=== PATIENT | female | born 1985 | race African-American/Black ===

== ENCOUNTER 2016-11-21 14:14 | Emergency (ER) | payer MEDICAID ==
[~2016-11-21] VITALS: Ht 170.2 cm; Wt 99.8 kg
[~2016-11-21 14:14] MED LIST: METRONIDAZOLE500 MG ORAL; SYNTHROID88 MCG ORAL; ZOFRAN4 MG ORAL
[2016-11-21 14:27] VITALS: BP 124/80
[2016-11-21 16:57] VITALS: BP 118/72
[2016-11-21] MEDS ORDERED: CLINDAMYCIN HC300 MG ORAL (17:01)
[2016-11-21] MEDS ORDERED: SYNTHROID137 MCG ORAL (17:01)
[2016-11-21 17:08] VITALS: BP 124/80
--- NOTE | 2016-11-21 17:11 | Diagnostic Imaging Report ---
Indication: Left neck swelling Technique: Grayscale and duplex images of area of swelling of the left Comparison: None Findings: Ovoid structures which are hypoechoic bordering on anechoic are seen in the left neck in the area of swelling. These demonstrate increased through-transmission, but on close examination, appear to have fatty zoey. The largest of these appear to be within the substance of the superficial lobe of the left parotid gland. The parotid gland itself may somewhat enlarged. Other prominent nodes are also seen elsewhere in the left neck. Impression: Ovoid hypoechoic structures with increased through transmission in the left neck, largest within the substance of the left parotid gland, which itself appears somewhat enlarged. Although these could represent multiple cysts, suspect that these represent multiple enlarged lymph nodes. Findings most likely represent parotitis with resulting reactive adenopathy. Correlation with clinical findings is recommended. Recommend followup sonography with CT scanning should symptoms fail to resolve with therapy Findings previously discussed by phone with Dr. Pagan in the emergency room
--- NOTE | 2016-11-21 18:11 | Emergency Room Report ---
History of Present Illness General Chief Complaint: General Complaint Source: Patient Present Illness HPI 31-year-old female presents ED complaining of left neck pain and swelling. States symptoms started 2 days ago. Denies trauma. States pain is sharp. . Nonradiating. No aggravating relieving factors. Denies fevers or chills. Denies earache or sore throat. Denies neck stiffness. Patient also here for medication refill. States she ran out of Synthroid 2 days ago. Status post thyroidectomy. Denies any other associated symptoms Allergies: Coded Allergies: No Known Allergies (Unverified , 05/26/14) Patient History Past Medical History: other - hypothyroidism Past Surgical History: other - thyroidectomy Pertinent Family History: none Social History: Denies: alcohol use, drug use, smoking Now: No Immunizations: UTD Reviewed Nursing Documentation: PMH: Agreed, PSxH: Agreed Review of Systems All Other Systems: negative except mentioned in HPI Physical Exam Vital Signs Date Time Temp Pulse Resp B/P Pulse Ox O2 Delivery O2 Flow Rate FiO2 11/21/16 14:24 98.2 89 20 119/84 99 Room Air Sp02 EP Interpretation: reviewed, normal General Appearance: no apparent distress, alert, GCS 15, non-toxic, obese Head: normocephalic, atraumatic Eyes: bilateral eye PERRL, bilateral eye normal inspection ENT: hearing grossly normal, normal pharynx, no angioedema, normal voice Neck: full range of motion, no meningismus, supple/symm/no masses, other - painful swelling to L side of neck. no fluctuance. no discharge Respiratory: chest non-tender, lungs clear, normal breath sounds, speaking full sentences Cardiovascular #1: regular rate, rhythm, no edema Gastrointestinal: normal inspection Rectal: deferred Genitourinary: no CVA tenderness Musculoskeletal: normal inspection Neurologic: alert, oriented x3, responsive, motor strength/tone normal, sensory intact, speech normal Psychiatric: normal inspection Skin: normal inspection Lymphatic: normal inspection Medical Decision Making Diagnostic Impression: Primary Impression: Parotitis ER Course 31-year-old female presents to ED complaining of pain and swelling to left side of neck. History of thyroidectomy Differential-abscess, lymphadenopathy, goiter Patient placed on stretcher. After initial history and physical I ordered neck ultrasound Neck ultrasound shows lymphadenopathy and findings suggestive of parotitis. Reassurance given to patient Patient is breast-feeding. Clindamycin noted to be safely breast-feeding his temperature and discussion with pharmacist And we'll provide refill of her Synthroid as well Diagnoses-parotitis stable and discharged to home with prescription for clindamycin, Synthroid. Followup with PMD. Return to ED if symptoms recur or worsen CT/MRI/US Diagnostic Results CT/MRI/US Diagnostic Results : Imaging Test Ordered: neck us Impression lymphadenopathy. parotitis. Last Vital Signs Date Time Temp Pulse Resp B/P Pulse Ox O2 Delivery O2 Flow Rate FiO2 11/21/16 17:08 98.2 95 20 124/80 99 Room Air Status: improved Disposition: HOME, SELF-CARE Condition: Stable Scripts Clindamycin Hcl (CLINDAMYCIN HCL) 300 Mg Capsule 300 MG ORAL THREE TIMES A DAY, #21 CAP Prov: KIERA GERMAN M.D. 11/21/16 Levothyroxine Sodium (SYNTHROID) 137 Mcg Tablet 137 MCG ORAL DAILY, #30 TAB Take in the morning on an empty stomach, at least 30 minutes before food. Prov: KIERA GERMAN M.D. 11/21/16 Patient Instructions: Parotitis, [id number] KIERA GERMAN M.D. Nov 21, 2016 18:11
== END 2016-11-21 17:08 | disposition home or self-care (01) ==
LOC: EMR 16:20
DX: K11.20 Sialoadenitis, unspecified (principal)
CPT/HCPCS: 76536; 99284